=== PATIENT | female | born 2000 | race Caucasian/White ===

== ENCOUNTER 2023-01-22 10:44 | Outpatient (CLI) | payer OTHER, SELFPAY ==
[2023-01-22 12:21] LABS: SARS-CoV-2 RNA PCR Positive (Negative)
== END 2023-01-22 10:45 | disposition home or self-care (01) ==
PROVIDERS: PCP Family Medicine; Visit Provider Physician Assistant
DX: U07.1 COVID-19 (principal); R05.9 Cough, unspecified
CPT/HCPCS: 87635

== ENCOUNTER 2023-06-07 17:49 | Emergency (ER) | payer OTHER, SELFPAY ==
--- NOTE | 2023-06-07 18:02 | ED.NAVMDI ---
HPI - Nausea/Vomiting/Diarrhea General Chief complaint: Nausea/Vomiting/Diarrhea Stated complaint: Headache, Diarrhea, Abdominal Pain Source: patient, RN notes reviewed and old records reviewed Mode of arrival: ambulatory Limitations: no limitations History of Present Illness HPI Narrative: 23-year-old female presents to [facility] with complaints of diarrhea, abdominal cramping, general malaise that started Sunday. Patient states here for work note for tomorrow. Patient denies nausea or vomiting. Patient states she has been taking in lots of fluids as tonight you dehydrated. MD elicited complaint: diarrhea Related Data Home Medications Medication Instructions Recorded Confirmed atomoxetine 80 mg capsule 80 mg PO DAILY 10/30/22 06/07/23 buspirone 10 mg tablet 10 mg PO DAILY 10/30/22 06/07/23 dextroamphetamine-amphetamine 10 10 mg PO DAILY 10/30/22 06/07/23 mg tablet (Adderall) Allergies Allergy/AdvReac Type Severity Reaction Status Date / Time No Known Allergies Allergy Verified 06/07/23 18:03 Review of Systems Constitutional: Constitutional: Reports no additional constitutional complaints, Denies body ache(s), Denies chills, Denies fatigue, Denies fever(s) and Denies headache(s) Eyes: Eyes: Reports no additional eye complaints and Denies blurry vision ENT: Reports system reviewed and no additional complaints, except as documented, Denies vertigo, Denies dizziness, Denies ear discharge, Denies otalgia, Denies facial pain, Denies headache(s), Denies nasal congestion, Denies nasal discharge, Denies sinus pain, Denies sinus pressure and Denies sore throat Cardiovascular: Cardiovascular: Reports no additional cardiovascular complaints, Denies chest pain, Denies chest pain at rest, Denies rapid heart rate and Denies dyspnea Respiratory: Respiratory: Reports no additional respiratory complaints, Denies chest congestion, Denies cough, Denies pain on inspiration, Denies pain with cough and Denies dyspnea Gastrointestinal: Gastrointestinal: Reports abdominal pain, Reports diarrhea, Denies nausea and Denies vomiting Integumentary/Breasts: Skin/Breast: Denies rash Neurologic: Reports system reviewed and no additional complaints, except as documented, Denies vertigo, Denies dizziness and Denies headache(s) Endocrine: Endocrine: Denies fatigue PMFSH Past Medical History Medical History ADHD Adult acne Depression Surgical History Surgical History History of tubal ligation Family History Family History Father Hypertension Other Carcinoma of colon Family history of cardiovascular disease Social History Social History Smoking status: Never smoker Second hand tobacco smoke exposure: No Alcohol intake: never Substance use: never Living arrangements: with roommate(s) Occupation/Education: occupation Gender identity (if verbalized by the patient): Female Comments At the time of my signature, I reviewed and agree with the nursing past medical, surgical, social, and family history. There is no relevant family history pertinent to the patient complaint. Exam Const: General: cooperative, healthy appearing, no acute distress and well nourished Nutritional Appearance: well nourished Orientation/consciousness: patient oriented x3 Limitations: no limitations HENMT: Head: normal to inspection and normocephalic Ears: external ears normal, TM's normal bilaterally, mastoids normal and Abnormal EAC present Face/Nose/Sinus: normal facial exam Face and sinus: normal facial exam Mouth: Yes Normal oral and palatal mucosa present, Yes oropharynx normal and Yes moist mucous membranes Throat: tonsils normal, uvula midline and no uvular edema Eyes: General: appearance normal, both eyes and
[2023-06-07 18:08] VITALS: BP 148/95; PULSE 103; RESP 16; TEMP 36.6; O2SAT 98
== END 2023-06-07 18:23 | disposition home or self-care (01) ==
PROVIDERS: Emergency Provider Registered Nurse; PCP Family Medicine
DX: K52.9 Noninfective gastroenteritis and colitis, unspecified (principal); F32.A Depression, unspecified; Z79.899 Other long term (current) drug therapy; Z20.822 Contact with and (suspected) exposure to COVID-19
CPT/HCPCS: 87426; 87804; 99212; C9803; G0463

== ENCOUNTER 2023-10-05 10:13 | Outpatient (CLI) | payer OTHER, SELFPAY ==
--- NOTE | ~2023-10-05 | US_ITS ---
EXAMINATION: US transvaginal DATE: 10/05/2023 10:34 INDICATION: Abnormal uterine bleeding Comparison:No prior studies for comparison. TECHNIQUE: Multiple transabdominal and endovaginal sonographic images of the pelvis performed. FINDINGS: The uterus measures 7.3 x 3.8 x 4.1 cm. The endometrial complex measures 8 mm. The right ovary measures 4 x 2.4 x 2.8 cm and the left ovary measures 2.8 x 2.4 x 2.8 cm. There are small follicles in each ovary. Normal doppler signal in both ovaries. There is no free fluid in the pelvis. There are no abnormal masses seen on either side. IMPRESSION: 1. Normal pelvic ultrasound. Reviewed, dictated and finalized at location B.
== END 2023-10-05 10:14 ==
LOC: MICIMG 10:14
PROVIDERS: PCP Nurse Practitioner; Visit Provider Nurse Practitioner
DX: N93.8 Other specified abnormal uterine and vaginal bleeding (principal)
CPT/HCPCS: 76830

== ENCOUNTER 2023-10-05 10:42 | Outpatient (CLI) | payer OTHER, SELFPAY ==
[2023-10-05 11:18] LABS: Hematocrit 39.7 % (37.0-47.0); Hemoglobin 13.3 g/dL (12.0-15.0); Mean Corpuscular HGB Conc 33.5 g/dl (32-36); Mean Corpuscular Volume 92.5 fl (80-100); Mean Platelet Volume 9.3 fl (7.4-10.4); Platelet Count Result 297 k/mm3 (150-375); Red Blood Count 4.29 M/mm3 (4.2-5.4); Red Cell Distribution Width 12.7 % (11.5-14.5); White Blood Count 11.7 K/mm3 (4.5-10.0)
[2023-10-05 11:27] LABS: Hemoglobin A1C 5.3 % (<5.7)
[2023-10-05 11:58] LABS: Free T4 Free Thyroxine 1.01 ng/mL (0.78-2.19); Vitamin D 25 Hydroxy 17.4 ng/mL
[2023-10-07 10:43] LABS: Insulin Level Total 48.9 uIU/mL
[2023-10-08 15:02] LABS: Prolactin 9.7 ng/mL
[2023-10-10 12:02] LABS: Testosterone Free 4.7 pg/mL (0.1-6.4); Testosterone Total 33 ng/dL (2-45)
== END 2023-10-05 10:43 | disposition home or self-care (01) ==
LOC: ANHLAB 10:45
PROVIDERS: PCP Nurse Practitioner; Visit Provider Nurse Practitioner
DX: R53.83 Other fatigue (principal); N93.8 Other specified abnormal uterine and vaginal bleeding
CPT/HCPCS: 36415; 82306; 82607; 83036; 83525; 84146; 84402; 84403; 84439; 84443; 85027

== ENCOUNTER 2024-04-10 08:47 | Outpatient (CLI) | payer OTHER, SELFPAY ==
[2024-04-10 09:18] LABS: Cholesterol 187 mg/dL (0-200); HDL Direct 41 mg/dL; Triglycerides 187 mg/dL (<150)
[2024-04-10 09:31] LABS: LDL Cholesterol Direct 111 mg/dL
[2024-04-10 10:09] LABS: Hemoglobin A1C 5.6 % (<5.7)
[2024-04-10 10:36] LABS: Vitamin D 25 Hydroxy 20.3 ng/mL
[2024-04-13 14:43] LABS: Zinc 63 mcg/dL (60-130)
== END 2024-04-10 08:48 | disposition home or self-care (01) ==
LOC: ANHLAB 08:50
PROVIDERS: PCP Family Medicine; Visit Provider Nurse Practitioner
DX: E28.2 Polycystic ovarian syndrome (principal); E55.9 Vitamin D deficiency, unspecified
CPT/HCPCS: 36415; 80061; 82306; 82607; 83036; 83525; 84630

== ENCOUNTER 2024-08-11 12:20 | Outpatient (CLI) | payer BC, SELFPAY ==
[2024-08-11 13:39] LABS: SARS-CoV-2 RNA PCR Negative (Negative)
--- OUTSIDE RECORDS SUMMARY | 2024-08-11 13:57 | XMS_ITS | Clinical Summary ---
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 Gender Identity Not on file Sexual Orientation Not on file Plan of Treatment Health Maintenance Due Date Last Done Comments Hepatitis C Virus (HCV) Screening 1999 TdaP Immunization 1999 Human Papillomavirus (HPV) Immunization (1 - 3-dose series) 2014 Hepatitis B Immunization (1 of 3 - 19+ 3-dose series) 2018 Pap Smear 01/12/2020 Influenza Immunization (#1) 2024 SARS-COV-2 Immunization ( season) 2024 Respiratory Syncytial Virus (RSV) Immunization (Adult) (1 - 1-dose 75+ series) 2074 Meningococcal Immunization (ACWY) Aged Out No longer eligible based on patient's age to complete this topic Pneumococcal Immunization Combined Aged Out No longer eligible based on patient's age to complete this topic Rotavirus Immunization Aged Out No lo nger eligible based on patient's age to complete this topic
--- OUTSIDE RECORDS SUMMARY | 2024-08-11 13:58 | XMS_ITS | Patient Health Summary ---
Author Organization [facility] Address [address] [place] [address] Care Team Providers Care Metal Spray Operator Name Role Phone Nico Burnham MD Primary Care Provider [phone] Note from [facility],non-owned Affiliates and Associated Physician Practices is amultiple site organization consisting of ambulatory clinics and hospital sitesin [place], [place], [place] and [place]. This disclosure is being madepursuant to the Care Everywhere program and may not contain all information available regarding this patient. Last updated 18.[facility] Allergies * Latex(Itching) Medications * Be aware that medications may not be up to date on this document. Alwaysverify current medications with the patient. * spironolactone (ALDACTONE) 50 MG tablet Take 1 (one) tablet by mouth once daily * FLUoxetine (PROZAC) 40 MG capsule Take 1 (one) capsule by mouth once daily Reasons: Depression * metFORMIN ER 24hr (Glucophage XR) 500 MG tablet Take 1 (one) tablet by mouth daily with dinner Take one tab in the morning and 2 tabs in the evening * atomoxetine (Strattera) 100 MG capsule Take 1 (one) capsule by mouth every morning * busPIRone (Buspar) 10 MG tablet Take 1 (one) tablet by mouth 2 times daily * cariprazine (Vraylar) 1.5 MG capsule Take 1 (one) capsule by mouth once daily * Ergocalciferol (VITAMIN D2 PO) Take 50,000 Int'l Units/day by mouth every 7 days WEEKLY Active Problems Problem Noted Date Diagnosed Date Major depressive disorder, r ecurrent severe without psychotic features 08/22/2019 Generalized anxiety disorder 08/22/2019 Anorexia nervosa in remission 08/22/2019 Social History Tobacco Use Types Packs/Day Years Used Date Smoking Tobacco: Never Smokeless Tobacco: Never Tobacco Cessation:Counseling Given: Not Answered Alcohol Use Standard Drinks/Week Comments Yes 1 (1 standard drink = 0.6 oz pur e alcohol) Maybe one a month AUDIT-C Answer Date Recorded Q1: How often do you have a drink containing alc ohol? 2-4 times a month 11/27/2023 Q2: How many drinks containi ng alcohol do you have on a typical day when you are drinking? 1 or 2 11/27/2023 Q3: How often do you have si x or more drinks on one occasion? Never 11/27/2023 PHQ-2 Answer Date Recorded Patient Health Questionnaire-2 Score 6 11/27/2023 Sex and Gender Information Value Date Recorded Sex Assigned at Not on file Gender Identity Not on file Sexual Orientation Not on file Last Filed Vital Signs Vital Sign Reading Time Taken Comments Blood Pressure 138/90 11/27/2023 7:00 AM CDT Pulse 91 11/27/2023 7:00 AM CDT Temperature 36.4 C (97.5 F) 11/27/2023 7:00 AM CDT Respiratory Rate 16 11/27/2023 7:00 AM CDT Oxygen Saturation - - Inhaled Oxygen Concentration - - Weight 99.3 kg (219 lb) 11/27/2023 7:00 AM CDT Height 165.1 cm (5' 5 ) 11/27/2023 7:00 AM CDT Body Mass Index 36.44 11/27/2023 7:00 AM CDT Care Teams Metal Spray Operator Relationship Specialty Start Date End Date Nico Burnham MD [address] [place] [address] PCP - General Family Medicine 08/22/19
--- OUTSIDE RECORDS SUMMARY | 2024-08-11 13:58 | XMS_ITS ---
Author Organization [facility] [employer] Address [address] [place] [address] Care Team Providers Care Waitress Name Role Phone Nico Burnham MD Primary Care Provider Unavaila Rogers Palacios Unavailable [phone] Allergies No Known Allergies Results Component Value Reference Range Notes UDT Reviewed date:07/03/2024 11:31:42 AM Interpretation: Performing Lab: Notes/Report: THC N 0 - 50 ng/ml Cocaine N 0 - 300 ng/ml Amphetamine N 0 - 1000 ng/ml Buprenorphine (BUP) N 0 - 10 ng/ml Secobarbital (Bar) N 0 - 300 ng/ml Oxazepam (BZO) N 0 - 300 ng/ml 3-mhztrwiwmq-6,8-fnuepkln-9,3-diphenylpyrrolidine (YOUNG P) N 0 - 300 ng/ml Methamphetamine (MET) N 0 - 1000 ng/ml Methylenedioxymethamphetamine (MDMA) N 0 - 500 ng/ml Morphine (MOP 300/RKW3056) N 0 - 300 ng/ml Methadone (MTD) N 0 - 300 ng/ml Phencyclidine (PCP) N 0 - 25 ng/ml Propoxyphene (PPX) N 0 - 300 ng/ml Nortriptyline (TCA) N 0 - 1000 ng/ml Oxycodone N 0 - 300 ng/ml REASON FOR VISIT Depression screening positive, follow up med eval, MIPS Pre hypertension, MIPS elevated BP, UDT Visit, UDT done Medications Medication SIG (Take, Route, Frequency, Duration) Notes Start Date End Date Status Vitamin D (Ergocalciferol) 1.25 MG (31580 UT) TAKE 1 CAPSULE BY MOUTH WEEKLY Oral for 84 Days Not-Taking Vitamin D (Ergocalciferol) 1.25 MG (50656 UT) TAKE 1 CAPSULE BY MOUTH WEEKLY Oral for 84 Days Unknown metFORMIN HCl ER 500 MG TAKE 1 TABLET BY MOUTH EVERY MORNING AND 2 TABLETS EVERY EVENING WITH MEALS Oral for 90 Days Unknown Spironolactone 50 MG TAKE 1 TABLET BY MO UTH TWICE DAILY Oral for 90 Days Unknown Vitamin D (Ergocalciferol) 1.25 MG (10581 UT) Oral for 84 Days Not-T aking Vraylar 1.5 MG TAKE ONE CAPSULE BY MOUTH ONCE A DAY for 90 Active Atomoxetine HCl 100 MG TAKE 1 CAPSULE BY MOUTH EVERY MORNING for 90 Active FLUoxetine HCl 40 MG TAKE 1 CAPSULE BY MOUTH EVERY MORNING for 90 Active Amphetamine-Dextroamphet ER 10 MG 1 capsule in the morning Oral Once a day for 30 days 07/03/2024 Active FLUoxetine HCl 40 MG 1 capsule every Morning Oral Once a day for 90 days Active busPIRone HCl 10 MG TAKE 1 TABLET BY WENDI TH TWICE DAILY for 90 Active Vraylar 1.5 MG 1 capsule Orally Onc e a day for 90 days Active Social History Tobacco Use: Social History Observation Description Date Details (start date - stop date) Never Smoker NA - NA Sex Assigned At : Social History Observation Description Sex Assigned At Female Tobacco Control (Standard) Question Answer Notes Tobacco use: Nonsmoker Problems Problem Type SNOMED Code ICD Code Onset Dates Problem Status W/U Status Risk Notes Problem Mild recurrent major depression (56664802) Major depressive disorder, recurrent, mild (F33.0) Active confirmed Vital Signs Blood pressure systolic 139 mm Hg 07/03/19 25 Blood pressure diastolic 90 mm Hg 025 Heart Rate 118 /min 07/03/2024 Height 65.00 in 07/03/2024 Weight 236 lbs 07/03/2024 BMI 39.27 kg/m2 07/03/2024 Height-cm 165.10 cm 07/03/2024 Weight-kg 107.05 kg 07/03/2024 Encounters Encounter Location Date Provider Diagnosis [facility] [employer] [facility] [address] [address] 07/03/2024 Rogers Oliver Attention-deficit hyperactivity disorder, predominantly inattentive type F90.0 ; Major depressive disorder, recurrent, mild F33.0 and Generalized anxiety disorder F41.1 Assessments Encounter Date Diagnosis (ICD Code) Assessment Notes Treatment Notes Treatment Clinical Notes Section Notes 07/03/2024 Attention-deficit hyperactivity disorder, predominantly inattentive type (ICD-10 - F90.0) Mild Depression - Assessment: Patient reports a decrease in the severity of depressive symptoms since the last visit in March, with some triggers related to work and disappointments. The patient is 'powering through' these symptoms without specific coping strategies. Diagnosis updated from severe to mild depression. - Plan: - Continue current medications: Fluoxetine 40 mg and Vraylar 1.5 mg. - Encourage the patient to continue counseling sessions. - Monitor progress and reassess at the next visit. Anxiety - Assessment: Patient reports diminished anxiety symptoms. - Plan: - No changes in treatment needed at this time. - Encourage the patient to continue using coping skills and counseling sessions. - Monitor progress and reassess at the next visit. Attention Deficit Hyperactivity Disorder (ADHD) - Assessment: Patient reports improved motivation and focus since the last visit. - Plan: - Continue current medication: Adderall 10 mg. - Monitor progress and reassess at the next visit. Social and Home Life - Assessment: Patient reports increased social activities with friends and family, despite living alone. - Plan: - Encourage the patient to continue engaging in social events and maintaining a healthy work-life balance. - Monitor progress and reassess at the next visit. Urine Toxin Screen - Plan: - Ensure the patient completes the urine toxin screen before leaving the clinic. Prescription Refills - Plan: - Refill Adderall 10 mg and Fluoxetine 40 mg prescriptions for 90 days. - Confirm prescriptions are sent to [facility]. Follow-up - Plan: - Schedule a follow-up appointment to monitor the patient's progress and reassess treatment plans as needed. 07/03/2024 Major depressive disorder, recurrent, mild (ICD-10 - F33.0) Mild Depression - Assessment: Patient reports a decrease in the severity of depressive symptoms since the last visit in March, with some triggers related to work and disappointments. The patient is 'powering through' these symptoms without specific coping strategies. Diagnosis updated from severe to mild depression. - Plan: - Continue current medications: Fluoxetine 40 mg and Vraylar 1.5 mg. - Encourage the patient to continue counseling sessions. - Monitor progress and reassess at the next visit. Anxiety - Assessment: Patient reports diminished anxiety symptoms. - Plan: - No changes in treatment needed at this time. - Encourage the patient to continue using coping skills and counseling sessions. - Monitor progress and reassess at the next visit. Attention Deficit Hyperactivity Disorder (ADHD) - Assessment: Patient reports improved motivation and focus since the last visit. - Plan: - Continue current medication: Adderall 10 mg. - Monitor progress and reassess at the next visit. Social and Home Life - Assessment: Patient reports increased social activities with friends and family, despite living alone. - Plan: - Encourage the patient to continue engaging in social events and maintaining a healthy work-life balance. - Monitor progress and reassess at the next visit. Urine Toxin Screen - Plan: - Ensure the patient completes the urine toxin screen before leaving the clinic. Prescription Refills - Plan: - Refill Adderall 10 mg and Fluoxetine 40 mg prescriptions for 90 days. - Confirm prescriptions are sent to [facility] in [place]. Follow-up - Plan: - Schedule a follow-up appointment to monitor the patient's progress and reassess treatment plans as needed. 07/03/2024 Generalized anxiety disorder (ICD-10 - F41.1) Mild Depression - Assessment: Patient reports a decrease in the severity of depressive symptoms since the last visit in March, with some triggers related to work and disappointments. The patient is 'powering through' these symptoms without specific coping strategies. Diagnosis updated from severe to mild depression. - Plan: - Continue current medications: Fluoxetine 40 mg and Vraylar 1.5 mg. - Encourage the patient to continue counseling sessions. - Monitor progress and reassess at the next visit. Anxiety - Assessment: Patient reports diminished anxiety symptoms. - Plan: - No changes in treatment needed at this time. - Encourage the patient to continue using coping skills and counseling sessions. - Monitor progress and reassess at the next visit. Attention Deficit Hyperactivity Disorder (ADHD) - Assessment: Patient reports improved motivation and focus since the last visit. - Plan: - Continue current medication: Adderall 10 mg. - Monitor progress and reassess at the next visit. Social and Home Life - Assessment: Patient reports increased social activities with friends and family, despite living alone. - Plan: - Encourage the patient to continue engaging in social events and maintaining a healthy work-life balance. - Monitor progress and reassess at the next visit. Urine Toxin Screen - Plan: - Ensure the patient completes the urine toxin screen before leaving the clinic. Prescription Refills - Plan: - Refill Adderall 10 mg and Fluoxetine 40 mg prescriptions for 90 days. - Confirm prescriptions are sent to [facility] in [place]. Follow-up - Plan: - Schedule a follow-up appointment to monitor the patient's progress and reassess treatment plans as needed. Plan Of Treatment Medication Medication Name Sig Start Date Stop Date Notes Amphetamine-Dextroamphet ER 10 MG 1 capsule in the morning Oral Once a day for 30 days 07/03/2024 FLUoxetine HCl 40 MG 1 capsule every Mor vriginia Oral Once a day for 90 days Vraylar 1.5 MG 1 capsule Orally Onc e a day for 90 days Next Appt Details Follow Up: 3 Months, Reason: Provider Name:Rogers Oliver , 10/01/2024 08:30:00 AM, [address] [facility] [address], [facility] [address], [place], [address], Progress Notes * ADELE BLANKDOB:2000 (24 yo F)Acc No.[id number]:07/03/2024 Patient: ADELE MILLER Provider: Ana OLIVER MD :2000 A ge:24 Y S ex:Female Date:07/03/2024 Address:[address] [place] [address] [facility] Pcp:Nico Burnham MD Subjective: * Chief Complaints: * D epression screening positiveFollow up med evalMIPS Pre hypertensionMIPS elevated BPUDT VisitUDT done * HPI: D epression Screening: The note is transcribed using speech recognition software. It is a reflection of a visit with the patient. It might have some inaccuracy, including medication names and transcribing errors, though efforts have been made to correct them. Chief Complaint: Diminished depression symptoms History of Present Illness The patient reports diminished depression symptoms compared to previous visits, though still experiences occasional days with low energy and 'nonsensical-ness.' These episodes are less detrimental than in the past. The patient is unsure of specific triggers but notes disappointments, unmet expectations, or schedule disruptions can contribute. Work-related issues appear to be more closely associated with depressive symptoms. The patient reports improved motivation and focus. They are currently living alone and have been more socially active recently, scheduling events a few times a month with both family and friends. The patient caprice by 'powering through' difficult periods. No side effects from current medications are reported, and the current dosage is deemed sufficient. The patient is engaged in ongoing counseling. Medical History: - Depression (previously severe, now mild) - Anxiety - ADD/ADHD Current Medications and Supplements: - Adderall 10mg - Fluoxetine 40mg - Vraylar 1.5mg Social History: - Living situation: lives alone - Social activities: schedules events a few times a month with family and friends - Coping mechanisms: 'powering through' difficult periods Review of Systems: - Psychiatric: Some days with low energy, mild depression, occasional disappointment, motivation improved - Neurological: Focus improved some days. ANSHUL-7 (2018 Edition) F eeling nervous, anxious, or on edge?Several days, N ot being able to stop or control worrying S everal days, W orrying too much about different things S everal days, T rouble relaxing M ore than half the days, B eing so restless that it is hard to sit still S everal days, B ecoming easily annoyed or irritable N ot at all, F eeling afraid as if something awful might happen S everal , I f you checked any problems, how difficult have they made it for you to do your work, take care of things at home, or get along with other people? S omewhat difficult. C ulissesia-Suicide Severity Rating Scale: Suicide Risk (CSRS-screener) i n the past one month Have you wished you were or wished you could go to sleep and not wake up? N o, i n the past one month Have you actually had any thoughts of killing yourself? N o. D epression screening: PHQ-9 L ittle interest or pleasure in doing things M ore than half the days, F eeling down, depressed, or hopeless S everal days, T rouble falling or staying asleep, or sleeping too much N ot at all, F eeling tired or having little energy S everal days, P oor appetite or overeating S everal days, F eeling bad about yourself or that you are a failure, or have let yourself or your family down M ore than half the days, T rouble concentrating on things, such as reading the newspaper or watching television M ore than half the days, M oving or speaking so slowly that other people could have noticed; or the opposite, being so fidgety or restless that you have been moving around a lot more than usual?Not at all, T houghts that you would be better off or of hurting yourself in some way Not at all, T otal Score 9 , I nterpretation M ild Depression. I ntervention?Depression Screening Findings P ositve, F ollow-Up for Depression M ental health treatment assessment, Patient follow-up to return when and if necessary, S uicide Risk Assessment Performed , A dditional Evaluation for Depression P sychiatric interview and evaluation, N mirian of the standardized tool used for adult depression screening: [facility] (PHQ-[facility]). H istory of Presenting Problem: Pt was seen today and Urine drug screen was done. * Medical History: * Surgical History: * Hospitalization/Major Diagno stic Procedure: * Social History: T obacco Use: T obacco Control (Standard) T obacco use: N onsmoker. M igrated Social History: M igrated Social History: Alcohol Intake: Occasional 04/30/2023,Tobacco Years: Never smoker 11/05/2019. M iscellaneous: A dvance Care Planning A re you your own decision-maker Y es, D o you have Power of Front Counter Attendant for Health or Medical? N o. * Medications: T akingAmphetamine-Dextroamphet ER 10 MG Capsule Extended Release 24 Hour 1 capsule in the morning Oral Once a day busPIRone HCl 10 MG Tablet TAKE 1 TABLET BY MOUTH TWICE DAILY FLUoxetine HCl 40 MG Capsule TAKE 1 CAPSULE BY MOUTH EVERY MORNING Atomoxetine HCl 100 MG Capsule TAKE 1 CAPSULE BY MOUTH EVERY MORNING Vraylar 1.5 MG Capsule TAKE ONE CAPSULE BY MOUTH ONCE A DAY Taking Amphetamine-Dextroamphet ER 10 MG Capsule Extended Release 24 Hour 1 capsule in the morning Oral Once a day Taking busPIRone HCl 10 MG Tablet TAKE 1 TABLET BY MOUTH TWICE DAILY Taking FLUoxetine HCl 40 MG Capsule TAKE 1 CAPSULE BY MOUTH EVERY MORNING Taking Atomoxetine HCl 100 MG Capsule TAKE 1 CAPSULE BY MOUTH EVERY MORNING Taking Vraylar 1.5 MG Capsule TAKE ONE CAPSULE BY MOUTH ONCE A DAY Not-TakingVitamin D (Ergocalciferol) 1.25 MG (27632 UT) Capsule TAKE 1 CAPSULE BY MOUTH WEEKLY Oral Vitamin D (Ergocalciferol) 1.25 MG (74339 UT) Capsule Oral Not-Taking Vitamin D (Ergocalciferol) 1.25 MG (90255 UT) Capsule TAKE 1 CAPSULE BY MOUTH WEEKLY Oral Not-Taking Vitamin D (Ergocalciferol) 1.25 MG (68605 UT) Capsule Oral UnknownSpironolactone 50 MG Tablet TAKE 1 TABLET BY MOUTH TWICE DAILY Oral metFORMIN HCl ER 500 MG Tablet Extended Release 24 Hour TAKE 1 TABLET BY MOUTH EVERY MORNING AND 2 TABLETS EVERY EVENING WITH MEALS Oral Vitamin D (Ergocalciferol) 1.25 MG (43127 UT) Capsule TAKE 1 CAPSULE BY MOUTH WEEKLY Oral Medication List reviewed and reconciled with the patientUnknown Spironolactone 50 MG Tablet TAKE 1 TABLET BY MOUTH TWICE DAILY Oral Unknown metFORMIN HCl ER 500 MG Tablet Extended Release 24 Hour TAKE 1 TABLET BY MOUTH EVERY MORNING AND 2 TABLETS EVERY EVENING WITH MEALS Oral Unknown Vitamin D (Ergocalciferol) 1.25 MG (50327 UT) Capsule TAKE 1 CAPSULE BY MOUTH WEEKLY Oral Medication List reviewed and reconciled with the patient * Allergies: N .K.D.A.no[Allergies Verified] Objective: * Vitals: B P:139/90mm Hg, HR:118/min, Wt:236lbs, Wt-k.05 kg, Ht: 65.00 in, Ht-cm: 165.10 cm, BMI:39.27Index, Body Surface Area: 2.21. * Examination: G eneral Examination: M ental Status Examination: Patient reports diminished symptoms of depression and anxiety, with occasional low energy and nonsensical feelings, but states these are not as detrimental as before. Patient describes coping by 'powering through' rather than using specific coping skills. Mild depression is still present, with triggers possibly related to work disappointments or schedule disruptions. The patient reports improved motivation and focus and is more social, scheduling events with family and friends. The patient is undergoing counseling. Diagnostic Test Results and Labs: Urine toxicology screening conducted on the date of the visit (SunJul 03 2024). Results pending as of last discussion in the visit. Assessment: * Assessment: 1. M louise depressive disorder, recurrent, mild - F33.0 2 . A ttention-deficit hyperactivity disorder, predominantly inattentive type - F90.0 3 . G eneralized anxiety disorder - F41.1 Mild Depression - Assessment: Patient reports a decrease in the severity of depressive symptoms since the last visit in March, with some triggers related to work and disappointments. The patient is 'powering through' these symptoms without specific coping strategies. Diagnosis updated from severe to mild depression. - Plan: - Continue current medications: Fluoxetine 40 mg and Vraylar 1.5 mg. - Encourage the patient to continue counseling sessions. - Monitor progress and reassess at the next visit. Anxiety - Assessment: Patient reports diminished anxiety symptoms. - Plan: - No changes in treatment needed at this time. - Encourage the patient to continue using coping skills and counseling sessions. - Monitor progress and reassess at the next visit. Attention Deficit Hyperactivity Disorder (ADHD) - Assessment: Patient reports improved motivation and focus since the last visit. - Plan: - Continue current medication: Adderall 10 mg. - Monitor progress and reassess at the next visit. Social and Home Life - Assessment: Patient reports increased social activities with friends and family, despite living alone. - Plan: - Encourage the patient to continue engaging in social events and maintaining a healthy work-life balance. - Monitor progress and reassess at the next visit. Urine Toxin Screen - Plan: - Ensure the patient completes the urine toxin screen before leaving the clinic. Prescription Refills - Plan: - Refill Adderall 10 mg and Fluoxetine 40 mg prescriptions for 90 days. - Confirm prescriptions are sent to [facility] in [place]. Follow-up - Plan: - Schedule a follow-up appointment to monitor the patient's progress and reassess treatment plans as needed. Plan: * Treatment: 2. A ttention-deficit hyperactivity disorder, predominantly inattentive type Refill Amphetamine-Dextroamphet ER Capsule Extended Release 24 Hour, 10 MG, 1 capsule in the morning, Oral, Once a day, 30 days, 30, Refills 0. * Labs: * L ab: UDT (Collection Date & Time - 07/03/2024) Value Reference Range T HC N 0 - 50 ng/ml * C ocaine N 0 - 300 ng/ml * A mphetamine N 0 - 1000 ng/ml * B uprenorphine (BUP) N 0 - 10 ng/ml * S ecobarbital (Bar) N 0 - 300 ng/ml * O xazepam (BZO) N 0 - 300 ng/ml * 2 -ethylidene-1,3-ojwgittp-8,3-diphenylpyrrolidine (EDDP) N 0 - 300 ng/ml * M ethamphetamine (MET) N 0 - 1000 ng/ml * M ethylenedioxymethamphetamine (MDMA) N 0 - 500 ng/ml * M orphine (MOP 300/YPE4116) N 0 - 300 ng/ml * M ethadone (MTD) N 0 - 300 ng/ml * P hencyclidine (PCP) N 0 - 25 ng/ml * P ropoxyphene (PPX) N 0 - 300 ng/ml * N ortriptyline (TCA) N 0 - 1000 ng/ml * O xycodone N 0 - 300 ng/ml * Procedure Codes: 8 0306 DRUG TST PRSMV READ INSTRMNT ASSTD DIR OPT [id number] BEHAV ASSMT W/SCORE & DOCD/STAND INSTRUMENT * Preventive Medicine: Counseling: B P Management: F IRST HYPERTENSIVE BP READING FOLLOW-UP PLAN: F ollow-up 1 month Follow up with your PCP, Jacqueline ANDRADE RECOMMENDATION: Jacqueline andrade education, REFERRAL TO ALTERNATIVE / PRIMARY CARE PROVIDER: R eferral to general medical service Recommended Nonpharmacologic Interventions (Lifestyle Modifications) - Weight ReductionA heart-healthy diet , such as Dietary Approaches to Stop Hypertension (DASH) Eating PlanDietary Sodium RestrictionIncreased Physical ActivityModeration in alcohol consumption. * Follow Up: 3 Months * Billing Information: * Visit Code: 65855 OFFICE OUTPATIENT VISIT 25 MINUTES DETAILED HISTORY AND EXAM/MODERATE MEDICAL DECISION MAKING. * Procedure Codes: 42133 DRUG TST PRSMV READ INSTRMNT ASSTD DIR OPT OBS. 36501 BEHAV ASSMT W/SCORE & DOCD/STAND INSTRUMENT. * L DEPLOYMENT SPECIALIST Sign off status: Completed true * Provider: Ana OLIVER MD Date: 0 07/03/2024 Generated for Printi ng/Pema/eTransmitting on: 0 08/11/2024 01:58 PM EMAIL DEPLOYMENT SPECIALIST History and Physical Notes * HPI (History of Present Illness) Category Sub-Category Detail Notes Category Not es History of Presenting Problem Pt was seen today and Urine drug screen was done Depression screening PHQ-9 Little inte rest or pleasure in doing things: More than half the days Feeling down, depressed, or hopeless: Se veral days Trouble falling or staying asleep, or sl eeping too much: Not at all Feeling tired or having little energy: S everal days Poor appetite or overeating: Several day s Feeling bad about yourself o r that you are a failure, or have let yourself or your family down: More than half the days Trouble concentrating on thi ngs, such as reading the newspaper or watching television: More than half the days Moving or speaking so slowly that other people could have noticed; or the opposite, being so fidgety or restless that you have been moving around a lot more than usual: Not at all Thoughts that you would be b ramy off or of hurting yourself in some way: Not at all Total Score: 9 Interpretation: Mild Depression Intervention Depression Screening Findings: P ositve Follow-Up for Depression: [facility] treatment assessment, Patient follow-up to return when and if necessary Suicide Risk Assessment Performed: Additional Evaluation for De pression: Psychiatric interview and evaluation Name of the standardized too l used for adult depression screening:: Patient Health Questionnaire (PHQ-9) Depression Screening ANSHUL-7 (2018 Edition) Feelin g nervous, anxious, or on edge: Several days Not being able to stop or control worryi ng: Several days Worrying too much about different things : Several days Trouble relaxing: More than half the day s Being so restless that it is hard to sit still: Several days Becoming easily annoyed or irritable: No t at all Feeling afraid as if something awful kirk ht happen: Several days If you checked any problems, how difficult have they made it for you to do your work, take care of things at home, or get along with other people?: Somewhat difficult Steele-Suicide Severity Rating Scale Suicide Risk (CSRS-screener) in the past one month Have you wished you were or wished you could go to sleep and not wake up?: No in the past one month Have y ou actually had any thoughts of killing yourself?: No Examination Category Sub-Category Detail Notes Category Not es General Examination Mental Status Examination: Patient reports diminished symptoms of depression and anxiety, with occasional low energy and nonsensical feelings, but states these are not as detrimental as before. Patient describes coping by 'powering through' rather than using specific coping skills. Mild depression is still present, with triggers possibly related to work disappointments or schedule disruptions. The patient reports improved motivation and focus and is more social, scheduling events with family and friends. The patient is undergoing counseling. Diagnostic Test Results and Labs: Urine toxicology screening conducted on the date of the visit (SunJul 03 2024). Results pending as of last discussion in the visit.
--- OUTSIDE RECORDS SUMMARY | 2024-08-11 13:58 | XMS_ITS | Referral Summary ---
Author Organization [facility] [employer] Address [address] [place] [address] Care Team Providers Care Elevator Pilot Name Role Phone Nico Burnham MD Primary Care Provider [phone] Source Comments [facility] [employer],non-owned Affiliates and Associated Physician Practices is amultiple site organization consisting of ambulatory clinics and hospital sitesin [place], [place], [place] and [place]. This disclosure is being madepursuant to the Care Everywhere program and may not contain all information available regarding this patient. Last updated 18.[facility] [employer] Allergies Active Allergy Reactions Criticality Noted Date Comments Latex Itching 08/22/2019 Medications * Be aware that medications may not be up to date on this document. Alwaysverify current medications with the patient. Medication Sig Dispensed Refills Start Date End Date Status spironolactone (ALDACTONE) 50 MG tablet Take 1 (one) tablet by mouth once daily Active FLUoxetine (PROZAC) 40 MG capsuleIndications:D epression Take 1 (one) capsule by mouth once daily Reasons: Depression Active metFORMIN ER 24hr (Glucophage XR) 500 MG tablet Take 1 (one) tablet by mouth daily with dinner Take one tab in the morning and 2 tabs in the evening Active atomoxetine (Strattera) 100 MG capsule Take 1 (one) capsule by mouth every morning Active busPIRone (Buspar) 10 MG tablet Take 1 (one) tablet by mouth 2 times daily Active cariprazine (Vraylar) 1.5 MG capsule Take 1 (one) capsule by mouth once daily Active Ergocalciferol (VITAMIN D2 PO) Take 50,000 Int'l Units/day by mouth every 7 days WEEKLY Active Active Problems Problem Noted Date Diagnosed Date [...] Mass Index 36.44 11/27/2023 7:00 AM CDT Plan of Treatment Not on file Care Teams Elevator Pilot Relationship Specialty Start Date End Date Nico Burnham MD [address] [place] [address] PCP - General Family Medicine 08/22/19
--- OUTSIDE RECORDS SUMMARY | 2024-08-11 13:58 | XMS_ITS | Clinical Summary ---
Author Organization [facility] [employer] Address [address] [place] [address] Care Team Providers Care Quality Control Clerk Name Role Phone Nico Burnham MD Primary Care Provider [phone] Source Comments [facility] [employer]non-owned Affiliates and Associated Physician Practices is amultiple site organization consisting of ambulatory clinics and hospital sitesin [place], [place], [place] and [place]. This disclosure is being madepursuant to the Care Everywhere program and may not contain all information available regarding this patient. Last updated 18.[employer] Allergies Active Allergy Reactions Criticality Noted Date [...] 11/27/2023 7:00 AM CDT Plan of Treatment Health Maintenance Due Date Last Done Comments PAP SMEAR 1999 HIV SCREENING 2014 HPV VACCINE (1 - 3-dose series) 2014 CHLAMYDIA/GONORRHEA SCREENING 2015 HEPATITIS C SCREENING 01/06/2017 DTAP/TDAP/TD VACCINES (1 - Tdap) 2018 HEPATITIS B VACCINE (1 of 3 - 19+ 3-dose series) 2018 COVID-19 VACCINE ( - 2023-2 5 season) 2024 INFLUENZA VACCINE (#1) 2024 DEPRESSION SCREENING 06/18/2024 11/27/2023 ZOSTER VACCINE (1 of 2) 2049 HIB VACCINE Aged Out No longer eligi ble based on patient's age to complete this topic MENINGOCOCCAL (Group B) VACCINE Aged Out No longer eligible based on patient's age to complete this topic MENINGOCOCCAL VACCINE Aged Out No elle angella eligible based on patient's age to complete this topic PNEUMOCOCCAL VACCINE Aged Out No long er eligible based on patient's age to complete this topic Care Teams Quality Control Clerk Relationship Specialty Start Date End Date Nico Burnham MD [address] [place] [address] PCP - General Family Medicine 08/22/19
--- OUTSIDE RECORDS SUMMARY | 2024-08-11 13:58 | XMS_ITS ---
Author Organization [facility] [employer] Address [address] [place] [address] Care Team Providers Care Computer Systems Security Analyst Name Role Phone Nico Burnham MD Primary Care Provider UnavailRogers Chin Unavailable [phone] REASON FOR VISIT tiereny goode Social History Sex Assigned At : Social History Observation Description Sex Assigned At Female Encounters Encounter Location Date Provider Diagnosis [facility] [address] [place] [address] 07/22/2024 Rogers Carty Major depressive disorder, recurrent severe without psychotic features F33.2 Assessments Encounter Date Diagnosis (ICD Code) Assessment Notes Treatment Notes Treatment Clinical Notes Section Notes 07/22/2024 Major depressive disorder, recurrent severe without psychotic features (ICD-10 - F33.2) Electronic Prior Authorization was requested for Vraylar 1.5 MG Capsule. Provider can order medication once approval received. Plan Of Treatment Treatment Notes Assessment Notes Major depressive disorder, r ecurrent severe without psychotic features Electronic Prior Authorization was reque sted for Vraylar 1.5 MG Capsule. Provider can order medication once approval received. Next Appt Details Provider Name:Rogerstahira Carty , 10/01/2024 08:30:00 AM, [address], [address], [place], [address], Progress Notes * ADELE BLANKDOB:2000 (24 yo F)Acc No.[id number]:07/22/2024 Patient: Grant MOODYADELE MAE :2000 A ge:24 Y S ex:Female Address:[address], [place], [address] Subjective: * Chief Complaints: * Yuval goode * Medical History: * Surgical History: * Hospitalization/Major Diagno stic Procedure: * Medications: Objective: * Vitals: * Physical Examination: Assessment: * Assessment: 1. M ajor depressive disorder, recurrent severe without psychotic features - F33.2 ? Plan: * Treatment: * Procedure Codes: * true * Date: Generated for Nigel cook/Pmea/eTransmitting on: 0 08/11/2024 01:58 PM [employer] SALES ENGINEER
--- OUTSIDE RECORDS SUMMARY | 2024-08-11 13:58 | XMS_ITS | Continuity of Care Document ---
Author Name [facility] Organization [facility] Care Team Providers Care Children'S Entertainer Name Role Phone [facility] Unavailable Unavailable Medications Combined list of outpatient medications from Department of Defense and Veterans Affairs facilities.Medications provided include 1) outpatient medications from the last 15 months, and 2) patient-reported medications. Medication Details Route Status Patient Instructions Prescription Expires Prescription Number Last Dispense Date Ordering Provider Order Date Order Qty Source ATOMOXETINE HCL (atomoxetin e HCl), 100 MG, CAPSULE, ORAL, CAMBER PHARMACE, 30 ea. BOTTLE Active [id number] 4 2023 30 Pharmac y Data Transac tion Service Facilit y ATOMOXETINE HCL (atomoxetin e HCl), 100 MG, CAPSULE, ORAL, CAMBER PHARMACE, 30 ea. BOTTLE Active [id number] 4 2023 30 Pharmac y Data Transac tion Service Facilit y ATOMOXETINE HCL (atomoxetin e HCl), 100 MG, CAPSULE, ORAL, CAMBER PHARMACE, 30 ea. BOTTLE Active [id number] 4 2023 30 Pharmac y Data Transac tion Service Facilit y ATOMOXETINE HCL (atomoxetin e HCl), 100 MG, CAPSULE, ORAL, RISING PHARM, 30 ea. BOTTLE Cancele d [id number] : 2023 0 Pharmac y Data Transac tion Service Facilit y BUSPIRONE HCL (BUSPIRONE HCL), 10MG, TABLET, ORAL, TEVA [place], 100 ea. BOTTLE Active [id number] 2023 60 Pharmac y Data Transac tion Service Facilit y BUSPIRONE HCL (BUSPIRONE HCL), 10MG, TABLET, ORAL, TEVA [place], 100 ea. BOTTLE Active [id number] 2023 60 Pharmac y Data Transac tion Service Facilit y BUSPIRONE HCL (BUSPIRONE HCL), 10MG, TABLET, ORAL, TEVA [place], 100 ea. BOTTLE Active [id number] 4 2023 60 Pharmac y Data Transac tion Service Facilit y BUSPIRONE HCL (BUSPIRONE HCL), 10MG, TABLET, ORAL, TEVA [place], 100 ea. BOTTLE Active [id number] 4 2023 60 Pharmac y Data Transac tion Service Facilit y BUSPIRONE HCL (BUSPIRONE HCL), 10MG, TABLET, ORAL, TEVA [place], 100 ea. BOTTLE Active [id number] 4 2023 60 Pharmac y Data Transac tion Service Facilit y DEXTROAMPHE TAMINE-AMPH ET ER (dextroamph etamine sulf-saccha rate/amphet amine sulf-aspart ate), 10 MG, CAP ER 24H, ORAL, GRANULES PHARMA, 100 ea. BOTTLE Active [id number] 2023 30 Pharmac y Data Transac tion Service Facilit y DEXTROAMPHE TAMINE-AMPH ET ER (dextroamph etamine sulf-saccha rate/amphet amine sulf-aspart ate), 10 MG, CAP ER 24H, ORAL, GRANULES PHARMA, 100 ea. BOTTLE Cancele d [id number] : 2023 0 Pharmac y Data Transac tion Service Facilit y DEXTROAMPHE TAMINE-AMPH ET ER (dextroamph etamine sulf-saccha rate/amphet amine sulf-aspart ate), 10 MG, CAP ER 24H, ORAL, GRANULES PHARMA, 100 ea. BOTTLE Active [id number] 2023 30 Pharmac y Data Transac tion Service Facilit y DEXTROAMPHE TAMINE-AMPH ET ER (dextroamph etamine sulf-saccha rate/amphet amine sulf-aspart ate), 10 MG, CAP ER 24H, ORAL, MALLINCKROD T PH, 100 ea. BOTTLE Active [id number] 2023 30 Pharmac y Data Transac tion Service Facilit y DEXTROAMPHE TAMINE-AMPH ET ER (dextroamph etamine sulf-saccha rate/amphet amine sulf-aspart ate), 10 MG, CAP ER 24H, ORAL, GRAHAM PHARMACE, 100 ea. BOTTLE Active [id number] 2023 30 Pharmac y Data Transac tion Service Facilit y DEXTROAMPHE TAMINE-AMPH ET ER (dextroamph etamine sulf-saccha rate/amphet amine sulf-aspart ate), 10 MG, CAP ER 24H, ORAL, GRAHAM PHARMACE, 100 ea. BOTTLE Active [id number] 2023 30 Pharmac y Data Transac tion Service Facilit y FLUOXETINE HCL (FLUOXETINE HCL), 40MG, CAPSULE, ORAL, TEVA [place], 100 ea. BOTTLE Active [id number] 4 2023 30 Pharmac y Data Transac tion Service Facilit y FLUOXETINE HCL (FLUOXETINE HCL), 40MG, CAPSULE, ORAL, TEVA [place], 100 ea. BOTTLE Active [id number] 2023 30 Pharmac y Data Transac tion Service Facilit y FLUOXETINE HCL (FLUOXETINE HCL), 40MG, CAPSULE, ORAL, TEVA [place], 100 ea. BOTTLE Active [id number] 2023 18 Pharmac y Data Transac tion Service Facilit y FLUOXETINE HCL (FLUOXETINE HCL), 40MG, CAPSULE, ORAL, TEVA [place], 100 ea. BOTTLE Active [id number] 2023 30 Pharmac y Data Transac tion Service Facilit y FLUOXETINE HCL (FLUOXETINE HCL), 40MG, CAPSULE, ORAL, TEVA [place], 500 ea. BOTTLE Active [id number] 2023 30 Pharmac y Data Transac tion Service Facilit y FLUOXETINE HCL (FLUOXETINE HCL), 40MG, CAPSULE, ORAL, TEVA [place], 500 ea. BOTTLE Active [id number] 2023 30 Pharmac y Data Transac tion Service Facilit y METFORMIN HCL ER (metformin HCl), 500 MG, TAB ER 24H, ORAL, GRANULES PHARMA, 500 ea. BOTTLE Cancele d [id number] : 2023 0 Pharmac y Data Transac tion Service Facilit y SPIRONOLACT ONE (SPIRONOLAC TONE), 50 MG, TABLET, ORAL, AMNEAL PHARMACE, 500 ea. BOTTLE Cancele d [id number] : 2023 0 Pharmac y Data Transac tion Service Facilit y VITAMIN D2 (ergocalcif leti (vitamin D2)), 1250 MCG, CAPSULE, ORAL, Trivie, 100 ea. BOTTLE Active [id number] 4 2023 12 Pharmac y Data Transac tion Service Facilit y VRAYLAR (cariprazin e HCl), 1.5 MG, CAPSULE, ORAL, [employer] 20 ea. BLIST PACK Cancele d [id number] : 2023 0 Pharmac y Data Transac tion Service Facilit y VRAYLAR (cariprazin e HCl), 1.5 MG, CAPSULE, ORAL, [employer] 20 ea. BLIST PACK Cancele d [id number] : 2023 0 Pharmac y Data Transac tion Service Facilit y VRAYLAR (cariprazin e HCl), 1.5 MG, CAPSULE, ORAL, [employer] 20 ea. BLIST PACK Active [id number] 2023 30 Pharmac y Data Transac tion Service Facilit y VRAYLAR (cariprazin e HCl), 1.5 MG, CAPSULE, ORAL, [employer] 20 ea. BLIST PACK Cancele d [id number] : 2023 0 Pharmac y Data Transac tion Service Facilit y VRAYLAR (cariprazin e HCl), 1.5 MG, CAPSULE, ORAL, [employer] 30 ea. BOTTLE Active [id number] 2023 30 Pharmac y Data Transac tion Service Facilit y VRAYLAR (cariprazin e HCl), 1.5 MG, CAPSULE, ORAL, [employer] 30 ea. BOTTLE Active [id number] 2023 30 Pharmac y Data Transac tion Service Facilit y VRAYLAR (cariprazin e HCl), 1.5 MG, CAPSULE, ORAL, [employer] 30 ea. BOTTLE Cancele d [id number] : 2023 0 Pharmac y Data Transac tion Service Facilit y VRAYLAR (cariprazin e HCl), 1.5 MG, CAPSULE, ORAL, [employer] 30 ea. BOTTLE Active [id number] 4 2023 30 Pharmac y Data Transac tion Service Facilit y Immunizations Combined list of available immunizations from the Department of Defense and Veterans Affairs facilities. Immunization Series Date Given Administered By Site Reaction Lot Number CVX Code Drug Railcar Foreman Status Comments Source COVID-19, mRNA, LNP-S, PF, 30 mcg/0.3 mL dose 2020 ALUL, () Not Given COVID-19, mRNA, LNP-S, PF, 30 mcg/0.3 mL dose DoD measles, mumps and rubella virus vaccine 1 2003 Unknown, Provider 03 Transcribed (TRS) complet ed measles, mumps and rubella virus vaccine DoD poliovirus vaccine, inactivated 1 2003 Unknown, Provider 10 Transcribed (TRS) complet ed polioviru s vaccine, inactivat ed DoD diphtheria, tetanus toxoids and acellular pertu is vaccine 1 2003 Unknown, Provider 20 Transcribed (TRS) complet ed diphtheri a, tetanus toxoids and acellular pertussis vaccine DoD hepatitis B vaccine, pediatric or pediatric/ado lescent dosage 3 1999 Unknown, [facility] [id number] hepatitis B vaccine, pediatric or pediatric /adolesce nt dosage DoD diphtheria, tetanus toxoids and acellular pertu is vaccine 3 1999 Unknown, Provider [id number] [employer] (LED) complet ed diphtheri a, tetanus toxoids and acellular pertussis vaccine DoD Haemophilus influenzae type b vaccine, HbOC conjugate 3 1999 Unknown, Provider [id number] L[facility] (LED) complet ed Haemophil us influenza e type b vaccine, HbOC conjugate DoD hepatitis B vaccine, pediatric or pediatric/ado lescent dosage 2 1998 Unknown, Provider [id number] 08 [facility] hepatitis B vaccine, pediatric or pediatric /adolesce nt dosage DoD poliovirus vaccine, inactivated 2 1998 Unknown, Provider [id number] [facility] (CON) complet ed polioviru s vaccine, inactivat ed DoD diphtheria, tetanus toxoids and acellular pertu is vaccine 2 1998 Unknown, Provider [phone] 20 [place]le (LED) complet ed diphtheri a, tetanus toxoids and acellular pertussis vaccine DoD Haemophilus influenzae type b vaccine, HbOC conjugate 2 1998 Unknown, Provider [id number] 47 L[place]le (LED) complet ed Haemophil us influenza e type b vaccine, HbOC conjugate DoD hepatitis B vaccine, pediatric or pediatric/ado lescent dosage 1 1998 Unknown, Provider [id number] [facility] (SKB) complet ed hepatitis B vaccine, pediatric or pediatric /adolesce nt dosage DoD poliovirus vaccine, inactivated 1 1998 Unknown, Provider [id number] Vish (CON) complet ed polioviru s vaccine, inactivat ed DoD diphtheria, tetanus toxoids and acellular pertu is vaccine 1 1998 Unknown, Provider [id number] 20 [place] (LED) complet ed diphtheri a, tetanus toxoids and acellular pertussis vaccine DoD Haemophilus influenzae type b vaccine, HbOC conjugate 1 1998 Unknown, Provider [id number] Lederle (LED) complet ed Haemophil us influenza e type b vaccine, HbOC conjugate DoD Procedures Combined list of: 1) Procedures from Department of Veterans Affairs facilities going back up to thelast 18 months, not all VA non-surgical procedures are included; 2) All procedures from the Department of Defense facilities. Procedure Procedure Type Code Date Perfomer Comments Claribel maldonado INSERTION OF ENDOTRACHEAL TUBE 1999 DoD LARYNGOSCOPY AND OTHER TRACHEOSCOPY 1999 DoD DETERMINATION OF REFRACTIVE STATE 07/24/2003 DoD Social History Combined list of available smoking, tobacco, and other social history from Department of Defense and Veterans Affairs facilities. Social History Type Response Date Comment Claribel maldonado This section is an empty social history section. DoD
--- OUTSIDE RECORDS SUMMARY | 2024-08-11 13:59 | XMS_ITS ---
Author Organization [facility] [employer] [facility] Address [facility] [address] [address] [address] Care Team Providers Care Health Sciences Dean Name Role Phone Nico Burnham MD Primary Care Provider UnavailRogers Chin Unavailable [phone] REASON FOR VISIT Vraylar 1.5 mg capsule PA Social History Sex Assigned At : Social History Observation Description Sex Assigned At Female Encounters Encounter Location Date Provider Diagnosis [facility] Hipbone [facility] [address] [address] 08/05/2024 Rogers Carty Plan Of Treatment Next Appt Details Provider Name:Rogers Carty , 10/01/2024 08:30:00 AM, [address], [facility] [address], [place], [address], Progress Notes * ADELE BLANKDOB:2000 (24 yo F)Acc No.[id number]:08/05/2024 Patient: ADELE MILLER :2000 A ge:24 Y S ex:Female Address:[address], [place], [address] Subjective: * Chief Complaints: * V raylar 1.5 mg capsule PA * Medical History: * Surgical History: * Hospitalization/Major Diagno stic Procedure: * Medications: Objective: * Vitals: * Physical Examination: Assessment: Plan: * Treatment: * Procedure Codes: * * Date:
== END 2024-08-11 12:21 | disposition home or self-care (01) ==
LOC: ANHLAB 12:21
PROVIDERS: PCP Family Medicine; Visit Provider Physician Assistant Medical
DX: J02.9 Acute pharyngitis, unspecified (principal); Z20.822 Contact with and (suspected) exposure to COVID-19
CPT/HCPCS: 87635

== ENCOUNTER 2025-03-27 11:11 | Outpatient (CLI) | payer BC, SELFPAY ==
--- NOTE | ~2025-03-27 | US_ITS ---
EXAMINATION: US pelvic complete, 03/27/2025 11:14 CDT HISTORY: Abn uterine bleeding Comparison: None Technique: Ely-scale and color Doppler images were obtained. Findings: Uterus: Uterus anteverted 7.1 x 3.2 x 5.4 cm. . Endometrium 9 mm. Right Ovary:Right ovary 3.4 x 2.1 x 3.5 cm, no adnexal mass, normal flow. Left Ovary: Left ovary 2.2 x 2.2 x 3.2 cm, no adnexal mass, normal flow. Free Fluid: None Impression: No acute abnormality. Reviewed, dictated and finalized at location P. Impression: No acute abnormality.
== END 2025-03-27 11:12 | disposition home or self-care (01) ==
LOC: MICIMG 11:12
PROVIDERS: PCP Family Medicine
DX: N93.8 Other specified abnormal uterine and vaginal bleeding (principal)
CPT/HCPCS: 76856